=== PATIENT | female | born 1960 | race Caucasian/White ===

== ENCOUNTER 2019-05-12 05:13 | Inpatient (IN) ==
--- NOTE | 2019-05-05 11:36 | EKG Report ---
Test Performed on : 05/05/2019 10:27:13 AM Test Reason : pat Blood Pressure : / mmHG Vent. Rate : 054 BPM Atrial Rate : 054 BPM P-R Int : 146 ms QRS Dur : 080 ms QT Int : 416 ms P-R-T Axes : 037 054 086 degrees QTc Int : 394 ms Sinus bradycardia. Nonspecific T wave abnormality Abnormal ECG No previous ECGs available Confirmed by Mirella Santos MD ([id number]) on 05/06/2019 12:02:05 PM
[2019-05-05 11:41] LABS: BASO# 0.07 X1000 (0.0-0.2); BASO% 1.1 % (0.0-0.8); EOS# 0.08 X1000 (0.0-0.7); EOS% 1.3 % (0.0-10.0); HEMATOCRIT 45.8 % (37.0-47.0); HEMOGLOBIN 15.3 g/dL (12.0-16.0); LYMPH# 2.11 X1000 (1.2-3.4); LYMPH% 34.6 % (20.5-51.1); MCH 30.7 PG (27-31); MCHC 33.4 g/dL (33-37); MONO# 0.49 X1000 (0.11-0.59); MPV 9.4 FL (7.4-10.4); NEUT# 3.35 X1000 (1.4-6.5); PLT 280 X1000 (130-400); RBC 4.98 XMIL (4.2-5.4); RDW 13.2 % (11.5-14.5)
[2019-05-05 12:11] LABS: AGAP 13; BUN 17 mg/dL (8-22); CALCIUM 9.9 mg/dL (8.8-10.2); CHLORIDE 102 mmol/L (98-107); COSMO 289; CREATININE 0.7 mg/dL (0.5-0.9); ESTIMATED GFR > 60; GLUCOSE 105 mg/dL (70-104); POTASSIUM 4.2 mmol/L (3.5-5.1); SODIUM 144 mmol/L (136-145); TCO2 29 mmol/L (25-35)
--- NOTE | 2019-05-10 17:04 | HISTORY AND PHYSICAL ---
DATE OF SURGERY: 05/12/2019 HISTORY: Patient is a 58-year-old female who was referred to me by Dr. Carlo Greer. The patient has had problems with worsening pelvic organ prolapse and has been managed by Dr. Greer at [facility]. She has been offered pessary management and has not done well with this and she is wishing to proceed towards surgical intervention. The patient has undergone prior vaginal reconstruction using a xenograft by Dr. Newell in the [facility]. We discussed the risks and benefits of sacrocolpopexy at length, I demonstrated the animation of the surgical correction as well as her defects and she is understanding and is wishing to proceed with surgical intervention. The patient has also had a prior retropubic sling placed and so any issues with incontinence will have to be managed as a secondary procedure. PAST MEDICAL HISTORY: Positive for hypothyroidism, hypercholesterolemia, hypertension and anxiety disorder. PAST SURGICAL HISTORY: Positive for tonsillectomy, abdominal hysterectomy, laparoscopic cholecystectomy, benign right breast biopsy, the retropubic sling, anterior and posterior compartment defect with placement of a xenograft. She is noted to be a para 1-0-0-1 with a forceps delivery. ALLERGIES: Sulfur. CURRENT MEDICATIONS: Losartan 100/25, metoprolol 25, levothyroxine 100, atorvastatin 10, lamotrigine 25, paroxetine 10, potassium chloride 10, amlodipine 2.5 and baby aspirin. FAMILY HISTORY: Positive for breast cancer in a maternal aunt. SOCIAL HISTORY: Negative for tobacco, ETOH, or drugs. 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 PHYSICAL EXAMINATION: BMI is 30. HEENT: Normocephalic, atraumatic. PERRLA. EOMI. No thyromegaly. CV: Regular rate and rhythm without murmur, gallop, rub. PULMONARY: Clear to auscultation, percussion. ABDOMEN: Soft. : Shows POP-Q stage II prolapse AA -2, BA -4, C -6, TVL 10, AP is -3, BP is - 8, GH is 6, PB is 4. NEURO: Afocal. EXTREMITIES: Without clubbing, cyanosis, or edema. ASSESSMENT AND PLAN: The patient has an anterior apical defect which is a recurrence after a prior vaginal reconstruction with xenograft. The patient has been managed with pessaries and is now wishing to proceed towards more definitive surgical intervention. The risks and benefits of robotic abdominal sacrocolpopexy were explained at length. She understands and is wishing to proceed. cc: MD BREA Lilly
[2019-05-12] MEDS ORDERED: REGLAN ONE (05:38)
[2019-05-12] MEDS ORDERED: KEFZOL 1 GM/D5W 2 GM/100 ML IVPB ONE (05:38)
[2019-05-12] MEDS ORDERED: LR 1,000 ML ONE ×3 (05:38→10:28)
[2019-05-12] MEDS ORDERED: PEPCID ONE (05:38)
[2019-05-12] MEDS ORDERED: HURRICAINE SPRAY (DOSE) ONE (06:06)
[2019-05-12] MEDS ORDERED: LUBRIFRESH PM OPH OINTMENT ONE (06:14)
[2019-05-12] MEDS ORDERED: QUELICIN (DOSE) ONE (06:19)
[2019-05-12] MEDS ORDERED: NORCURON ONE (06:19)
[2019-05-12] MEDS ORDERED: XYLOCAINE-MPF 2% ONE ×2 (06:19→08:07)
[2019-05-12] MEDS ORDERED: ROBINUL ONE (06:19)
[2019-05-12] MEDS ORDERED: STERILE WATER INJ. ONE (06:19)
[2019-05-12] MEDS ORDERED: VERSED ONE (06:21)
[2019-05-12] MEDS ORDERED: FENTANYL ONE (06:21)
[2019-05-12] MEDS ORDERED: DIPRIVAN 1% ONE (06:21)
[2019-05-12] MEDS ORDERED: SENSORCAINE 0.25%/EPI 1:200,000 ONE (06:30)
[2019-05-12] MEDS ORDERED: D10W 1,000 ML ONE (06:30)
--- NOTE | 2019-05-12 06:35 | H&P REVIEW ---
H&P Update H&P Review: H&P was reviewed and patient was examined, No change has occurred in the patient's condition
[2019-05-12] MEDS ORDERED: DECADRON ONE (07:02)
[2019-05-12] MEDS ORDERED: ZOFRAN ONE (07:02)
[2019-05-12] MEDS ORDERED: LASIX ONE (07:08)
[2019-05-12] MEDS ORDERED: TORADOL ONE (07:08)
[2019-05-12] MEDS ORDERED: NEOSTIGMINE ONE (07:29)
[2019-05-12] MEDS ORDERED: METROGEL-VAGINAL 0.75% GEL ONE (09:08)
[2019-05-12 09:13] LABS: URINE SOURCE CATH
[2019-05-12 09:16] LABS: BILIRUBIN URINE NEGATIVE (NEGATIVE); BLOOD URINE NEGATIVE (NEGATIVE); COLOR YELLOW; GLUCOSE URINE NEGATIVE (NEGATIVE); KETONE URINE NEGATIVE (NEGATIVE); LEUKOCYTES URINE NEGATIVE (NEGATIVE); NITRITE URINE NEGATIVE (NEGATIVE); PROTEIN URINE NEGATIVE (NEGATIVE); SP GRAVITY URINE 1.022; TURBIDITY URINE CLEAR (CLEAR); UROBILINOGEN URINE NORMAL (NORMAL)
[2019-05-12 09:18] LABS: UR EPITHELIAL CELLS <10 /HPF (<10); URINE BACTERIA NEGATIVE /HPF; URINE RBC <10 /HPF (<10); URINE WBC <10 /HPF (<10)
[2019-05-12] MEDS ORDERED: MORPHINE ONE (09:44)
[2019-05-12] MEDS ORDERED: LR 1,000 ML IV SCH (12:10)
[2019-05-12] MEDS ORDERED: NORCO-5 PO PRN (12:10)
[2019-05-12] MEDS ORDERED: ZOFRAN ODT PO PRN (12:10)
[2019-05-12] MEDS: PERIDEX MT SCH ×2 (12:35→22:00)
[2019-05-12] MEDS: COLACE PO SCH ×2 (12:35→22:00)
[2019-05-12] MEDS: NORVASC PO SCH (12:35)
[2019-05-12] MEDS: TOPROL XL PO SCH (12:35)
[2019-05-12] MEDS: PAXIL PO SCH (12:35)
[2019-05-12] MEDS: SYNTHROID PO SCH (12:35)
[2019-05-12] MEDS: LIPITOR PO SCH (12:36)
[2019-05-12] MEDS: LAMICTAL PO SCH (12:36)
[2019-05-12] MEDS: KLOR-CON PO SCH (12:36)
[2019-05-12] MEDS: HYZAAR 50/12.5 MG PO SCH (12:37)
--- NOTE | 2019-05-12 12:48 | OPERATIVE NOTE ---
PROCEDURE DATE: 05/12/2019 PREOPERATIVE DIAGNOSIS: Pelvic organ prolapse. POSTOPERATIVE DIAGNOSIS: Pelvic organ prolapse. PROCEDURE: DA Saurabh abdominal sacrocolpopexy and distal posterior compartment defect repair. SURGEON: Aman London MD ANESTHESIA: General. ESTIMATED BLOOD LOSS: 40 mL. HISTORY: The patient is a 58-year-old female with a history of prior hysterectomy, prior sling, prior anterior and posterior compartment defect repairs with placement of a vaginal graft. The patient had this procedure, and the procedure lasted for approximately 1 year. She then began having symptomatic prolapse issues again. She was seen by Dr. Carlo Greer at [facility], who recommended pessary management however, she chose not to proceed with that and is wishing for surgical intervention. We discussed this again in the office however, she is wishing to proceed towards sacrocolpopexy. She is admitted at this time for this. OPERATIVE FINDINGS: The patient is found have POP-Q stage III prolapse with the patient asleep. With the patient supine and resting, she was easily at +2 at point AB and point BP. She was found to have a normal bladder after completion of cystoscopy with efflux of urine from both ureters. No other abnormalities were noted after completion of the procedure. OPERATIVE PROCEDURE: Patient was taken to the operating room and placed in supine position. After adequate general anesthesia obtained, she is placed in low Yellofin stirrups. Her abdomen and vagina was prepped and draped in the usual fashion. A repeat umbilical incision was made after infiltration of 0.25% Marcaine with epinephrine. A 12 mm port and sheath were introduced through this incision into the abdominal cavity. Pelvic contents were visualized. Therefore, insufflation with CO2 to an intra-abdominal pressure of 14 was performed. The left-sided ports were placed under direct visualization without any difficulty after infiltration with the local anesthetic, and then the right-sided ports were placed in a similar fashion as well. The patient was then placed in deep Trendelenburg position, and the EEA sizers were placed within the vagina and the anus, and Gomez catheter was placed. Robot was docked in the usual fashion. Hot scissors were in the right hand. The bipolar PK was in the left hand, and arm 3 had a Cadiere grasper. At this time, we began initially with dissection for lysis of adhesions. The descending colon had adhesions involving the entire left side, most of them were relatively filmy in nature. There was some thickened adhesions near the iliac crest. However, upon performing this adhesiolysis, we had much better mobility of the colon and could much easier see the vaginal cuff. Using the EEA Sizer, we were able to elevate the cuff and it was easy to demarcate the vesicovaginal fold. We started just cephalad to this area with our dissection, and we dissected approximately 8 cm anteriorly. Posteriorly, we had approximately 10 cm dissected out without any difficulty. We could have gone further with our dissection, but we had difficulty with visualization of this area. Therefore, a decision was made not to proceed any further in the rectovaginal septum. We then turned our attention towards the sacral promontory. We deviated the colon laterally. We were able to identify the great vasculature in this area. We elevated the peritoneum, and then dissected down to the anterior longitudinal ligament in the typical fashion. We then created our tunnel, paying attention on ureter route and the sigmoid colon. Upon doing this, we then trimmed our mesh. We had approximately 8 cm anteriorly and approximately 10 cm posteriorly. The mesh was introduced into the pelvic cavity, and then equipment was changed out to 2 needle drivers. Starting in the anterior compartment, we secured the anterior vesicovaginal mesh with interrupted sutures using 2.0 [place]-Roman. All knots were thrown with an initial surgeon's throw, and 4 half throws after this. We placed approximately 10 interrupted sutures in the vesicovaginal space securing the mesh. We had several sutures across the apex, and then we placed approximately 8 to 10 sutures in the posterior compartment in a similar fashion. The third arm was then brought up to the anterior longitudinal ligament at the sacral promontory, and 2 sutures were easily placed through the ligament with no difficulty. Excessive mesh was trimmed at this point. We released the EEA Sizer and placed a few extra sutures near the graft Y, and looked at the anterior compartment and seemed to be well secured. At this time, a decision was made to proceed with reperitonealization. We used a V-Loc suture to re-peritonealize, and we had the entire graft reperitonealized with no difficulty. At this time, the decision was made to terminate this portion of the procedure. Our blood loss at this time had been approximately 10 mL. Copious amounts of irrigation was performed, and hemostasis was observed at all sites. All equipment was removed under direct visualization, and the abdomen was deflated of CO2. The robot was undocked in the usual fashion. Using a Blayne-James closure system, we closed the fascia in deep layers of both the umbilical port and the assistance port which was on the right-hand side. Abdomen incisions were then closed by nursing services with 4.0 Vicryl ligature, and the abdomen had been deflated of all CO2. Vaginally, the Gomez catheter was removed and we filled the bladder with approximately 300 mL of D10. There was no evidence of any abnormalities within the bladder, and both ureters were effluxing urine without difficulty. Vaginally, we had excellent apical and anterior support. We had very good posterior support, but I was concerned about possible bulging in the distal posterior compartment, so a decision was made to proceed with a distal posterior compartment defect repair. We grasped this area in the midline with Allis clamps and injected approximately 40 mL of 0.25% Marcaine with epinephrine and diluted 50% with normal saline. We made a sagittal incision in this area, and then dissected out laterally to the distal levators. We used interrupted 0 Vicryl ligature to plicate the distal levators across the defect. Decision was made not to trim any vaginal mucosa. We closed the posterior vaginal incision with a running 2.0 Vicryl ligature. Gomez catheter was placed, and vaginal pack was placed x1. Sponge count, instrument count, and needle counts correct x3. Packs and drains were Gomez. The patient was taken out of low adjustable stirrups. She was awakened and taken to the recovery room with vital signs stable. A rectal examination had been performed just prior to the termination of the procedure, and it was found to be within normal limits. cc: Aman London MD
[2019-05-12] MEDS: TORADOL IV SCH ×2 (14:22→22:00)
--- NOTE | 2019-05-12 17:33 | PROGRESS NOTE ---
DATE: 05/12/2019 TIME: Approximately 5:00 p.m. SUBJECTIVE: The patient is alert and oriented x3. She is doing well. OBJECTIVE: Vital signs: Afebrile. Vital signs stable. Genitourinary: Urine output is adequate. ASSESSMENT AND PLAN: Routine postoperative care. Voiding trial in the morning. We will plan on discharge in the morning if she has a good evening. cc: Aman London MD
[2019-05-13] MEDS: TORADOL IV SCH ×2 (03:59→09:20)
--- NOTE | 2019-05-13 07:20 | DISCHARGE SUMMARY ---
ADMISSION DATE: 05/12/2019 DISCHARGE DATE: 05/13/2019 HISTORY: The patient is a 58-year-old female with advanced stage prolapse who had undergone prior reconstruction with a graft vaginally by another physician, who is having recurrent symptoms and wished to proceed to surgical intervention. HOSPITAL COURSE: The patient underwent a robotic abdominal sacrocolpopexy and distal posterior compartment defect repair. Postoperative course has been uncomplicated. She is currently undergoing voiding trial and will be discharged home with instructions for followup in 3 weeks. DISCHARGE MEDICATIONS: Tramadol, Colace and Ketoralac. cc: Aman London MD
[2019-05-13 07:36] VITALS: BP 125/68
[2019-05-13] MEDS: PERIDEX MT SCH (09:19)
[2019-05-13] MEDS: TOPROL XL PO SCH (09:20)
[2019-05-13] MEDS: KLOR-CON PO SCH (09:20)
[2019-05-13] MEDS: SYNTHROID PO SCH (09:20)
[2019-05-13] MEDS: LAMICTAL PO SCH (09:20)
[2019-05-13] MEDS: NORVASC PO SCH (09:20)
[2019-05-13] MEDS: PAXIL PO SCH (09:20)
[2019-05-13] MEDS: HYZAAR 50/12.5 MG PO SCH (09:20)
[2019-05-13] MEDS: LIPITOR PO SCH (09:20)
[2019-05-13] MEDS: COLACE PO SCH (09:20)
== END 2019-05-13 11:31 | disposition home or self-care (01) | DRG 748 ==
LOC: OPS 05:13 → 4N 05:13 → OBSVTOIN 09:04
PROVIDERS: ADMIT Obstetrics & Gynecology; ATTEND Obstetrics & Gynecology